=== PATIENT | male | born 1960 | race Two or more races ===

== ENCOUNTER → 2025-04-08 | Day surgery (SDC) | payer MEDICAID ==
[2025-04-01 10:35] LABS: Hematocrit 40.8 % (41.0-53.0); Hemoglobin 13.9 g/dL (13.5-17.5); Mean Corpuscular Hemoglobin 28.7 pg (28.0-32.0); Mean Corpuscular Volume 84.2 fL (80.0-100.0); Nucleated Red Blood Cells % 0.1 %
[2025-04-01 10:48] LABS: INR 1.05 (0.9-1.15); Partial Thromboplastin Time 26.4 SEC (24.5-34.5); Prothrombin Time 11.1 sec (9.3-11.8)
[2025-04-01 10:54] LABS: Urine Protein, UAD 1+ (Negative); Urine WBC Clumps PRESENT /hpf (None Seen)
[2025-04-01 11:20] LABS: Albumin 4.0 g/dL (3.2-4.8); Alkaline Phosphatase 60 U/L (46-116); Anion Gap 8 (5-15); BUN/Creatinine Ratio 8.7 (10.0-20.0); Blood Urea Nitrogen 12 mg/dL (9-23); Calcium 9.9 mg/dL (8.7-10.4); Carbon Dioxide 29 mmol/L (20-31); Chloride 106 mmol/L (98-107); Glucose 99 mg/dL (74-106); Sodium 143 mmol/L (136-145); Total Protein 6.8 g/dL (5.7-8.2)
[2025-04-01 11:21] LABS: Bilirubin, Total 0.5 mg/dL (0.2-1.0)
[2025-04-01 11:22] LABS: Alanine Aminotransferase < 9 U/L (7-40); Potassium 3.4 mmol/L (3.5-5.1)
[~2025-04-08] VITALS: Ht 182.9 cm; Wt 78.5 kg
[~2025-04-08] MED LIST: AMAN100T PO; FINA5TAB4 PO; LIDOCAINE 1% (LOCAL ANESTH.) PF 5ml SDV IJ ONE; MELA3TAB27 PO; ONDANSETRON HCL 4 MG/2 ML VIAL ONE; PROPOFOL 10 MG/ML 20 ML IV ONE; SENN-58 PO; TAMS0.4C39 PO
--- NOTE | 2025-04-08 12:36 | DVHHP2 ---
GI H&P Pre-Op Assessment Date: 04/08/25 Chief complaint: PEG removal HPI: per clinic note Past medical history: per clinic note Past surgical history: per clinic note Family history: per clinic note Physical exam: General: NAD, AAOX3 HEENT: PERRL, no scleral icterus, normal hearing, gums without lesions or bleeding, oropharynx clear without erythema or exudate. Neck: Supple without enlargement of the thyroid, or lymphadenopathy. Chest: Normal size and shape, no tenderness, lung bauman clear to auscultation and percussion, nonlabored breathing. Heart: RRR, no murmur Abdomen: non-distended, no tenderness to palpation, +BS, no hepatosplenomegaly Extremities: no edema Neurological: CN II-XII intact, sensation intact in all extremities, 5+ strength in all extremities Skin: No rashes, No jaundice Assessment: - PEG removal Plan: - EGD - Risks (bleeding, infection, perforation, reaction to sedation medications and cardiopulmonary arrest) and benefit of the procedure were explained to patient. Patient agrees to undergo the procedure. JOHNNY BENSON MD Apr 08, 2025 12:36
[2025-04-08 12:58] VITALS: PULSE 80; RESP 15; TEMP 98.5; O2SAT 99
--- NOTE | 2025-04-08 12:59 | DVHOP2 ---
Operative Report DATE OF OPERATION: 04/08/25 PROCEDURE: Upper Endoscopy. PREOPERATIVE INDICATION: The patient is a 64 -year-old male undergoing endoscopy for removal of PEG. POSTOPERATIVE DIAGNOSES: 1. Duodenitis in the duodenal bulb. 2. The PEG was removed. PROCEDURE PERFORMED BY: Luis Su SCOPE: Olympus videoendoscope. ASA CLASS: 2 PREOPERATIVE MEDICATIONS: MAC with [employer] REPRESENTATIVE PROCEDURE IN DETAIL: After obtaining an informed consent, the patient was pl aced on left lateral decubitus position. The patient was then sedated with the above medications. A bite block was placed between his teeth. The endoscope was then passed through the oropharynx, into the esophagus, and through the stomach and pylorus up to the second and third part of the duodenum. There was duodenitis in the duodenal bulb. Duodenal biopsies were obtained using cold forceps. The PEG was cut and the bumper was removed using a Johnson net. The GE junction was normal in appearance at 37 cm. The esophagus was normal in appearance. The endoscope was then withdrawn. The patient tolerated the procedure well without difficulty. COMPLICATIONS : None SPECIMENS: Duodenal biopsies DISPOSITION: D/C to home PLAN: 1. Await for biopsy result LUIS SU MD Apr 08, 2025 12:59
--- NOTE | 2025-04-08 12:59 | DVHDS2 ---
Physician Discharge Progress N Final Diagnosis: Duodenitis Removal of the PEG Operations or Procedures: Operations or Procedures EGD with cold biopsies Condition on Discharge: Good Disposition: Home Discharge Instructions: Diet: Regular Activity: No Restrictions, As Tolerated Medications: Resume previous home medications Follow Up Care: Discharge Statement: "Patient was advised to return to the ER or call 911 if any headaches, dizziness, shortness of breath, chest pain, abdominal pain, bleeding, fevers, or worsening of medical condition. Patient was counseled about treatment plan, medications, possible side effects, patientverbalized understanding. All questions were answered to the best of my ability. This discharge took greater then 30 minutes in planning, reviewing documentation, counseling the patient, and discussing with other team members." JOHNNY BENSON MD Apr 08, 2025 12:59
[2025-04-08 13:38] VITALS: BP 112/78; PULSE 74; RESP 18; O2SAT 96
== END | disposition home or self-care (01) ==
LOC: GI 09:37
PROVIDERS: ATTEND Internal Medicine Gastroenterology
DX: K29.80 Duodenitis without bleeding (principal); R10.9 Unspecified abdominal pain; K94.29 Other complications of gastrostomy; Z98.890 Other specified postprocedural states
CPT/HCPCS: 36415; 43239; 43247; 80053; 81001; 85025; 85610; 85730; 88305; J2405; J2704; J7030